=== PATIENT | female | born 1985 | race Caucasian/White ===

== ENCOUNTER 2025-07-10 17:44 | Emergency (ER) | payer MEDICAID ==
[~2025-07-10] VITALS: Ht 157.5 cm; Wt 48.9 kg
--- NOTE | 2025-07-10 18:03 | Physician Documentation ---
History of Present Illness ~ Stated Complaint: MENTAL HEALTH Time Seen by MD: 17:48 HPI 40-year-old female presents to the ED clearly high on some sort of sympathomimetic. Has a rambling forced an pressured speech. She came with her sister who is concerned for her well-being. Her sister states that she has had suicide ideation today however the patient adamantly denies this. According to the patient's sister she was [facility] and came to the sister's house and then left for 4 hours where they found her in a trash can. Patient a cknowledges using cocaine methamphetamine and fentanyl. Denies any history of psychiatric illness. Adamantly denies suicide ideation or homicidal ideation Pt's primary complaint is that she has a headache Day of Onset: Jul 10, 2025 Medication Reconciliation Allergies: Coded Allergies: amoxicillin (Verified Allergy, Severe, HIVES, 07/10/25) clavulanic acid (Verified Allergy, Severe, HIVES, 07/10/25) Penicillins (Verified Allergy, Intermediate, RASH, 07/10/25) diphenhydramine (Verified Allergy, Mild, RASH, 07/10/25) Scheduled Escitalopram Oxalate* (Lexapro*), 1 TAB PO DAILY, (Reported) levothyroxine sodium* (Synthroid*), 1 TAB PO DAILY, (Reported) Review of Systems All Other Systems at this time: Reviewed and Negative ROS As stated above in the HPI, otherwise all systems are reviewed and negative. Physical Exam Physical Exam General: Alert, no apparent distress. Cardiovascular: Regular rate and rhythm, no murmurs. Gastrointestinal: Soft, nontender, nondistended. Bowels sounds present. Neurologic: Oriented x4. Psychiatric: . Pressured speech anxious appearing rambling phrases Skin: Normal color, warm and dry. No edema, no ecchymosis. Progress Results/Orders Results/Orders Completed Orders - ANISHA SIMS Melatonin Tablet (Melatonin Tablet) (07/10/25 22:34) Medications Received in ER Medications (Trade) Dose Ordered Sig/Hector Route PRN Reason Start Time Stop Time Status Last Admin Dose Admin (Toradol inj. 30mg/ml) 30 mg ONCE ONCE IM 07/10/25 18:10 07/10/25 18:11 DC 07/10/25 18:34 30 MG (Haldol) 5 mg ONCE ONCE IM 07/10/25 18:15 07/10/25 18:16 DC 07/10/25 18:34 5 MG (Valium inj) 5 mg ONCE ONCE IM 07/10/25 18:15 07/10/25 18:16 DC 07/10/25 18:35 5 MG (Melatonin tablet) 9 mg NOW STAT PO 07/10/25 22:34 07/10/25 22:36 DC 07/10/25 22:41 9 MG Vital Signs 07/10/25 07/10/25 07/10/25 07/10/25 18:02 18:34 18:35 18:46 Temp 97.8 Pulse 76 Resp 18 20 20 20 B/P (MAP) 121/81 Pulse Ox 100 O2 Flow Rate 0 07/10/25 07/10/25 19:30 19:35 Temp 98.6 Pulse 74 Resp 20 18 B/P (MAP) 120/70 (87) Pulse Ox 99 Laboratory Tests Test 07/10/25 18:17 07/10/25 18:44 White Blood Count 11.9 H Red Blood Count 4.76 Hemoglobin 14.2 Hematocrit 42.2 Mean Corpuscular Volume 88.6 Mean Corpuscular Hemoglobin 29.9 Mean Corpuscular Hemoglobin Concent 33.7 Red Cell Distribution Width 13.0 Platelet Count 353 Mean Platelet Volume 7.0 L Neutrophils (%) (Auto) 68.7 Lymphocytes (%) (Auto) 24.1 Monocytes (%) (Auto) 6.1 Eosinophils (%) (Auto) 0.6 Basophils (%) (Auto) 0.5 Neutrophils # (Auto) 8.1 H Lymphocytes # (Auto) 2.9 Monocytes # (Auto) 0.7 Eosinophils # (Auto) 0.1 Basophils # (Auto) 0.1 CBC Comment Sodium Level 139 Potassium Level 3.5 Chloride Level 103 Carbon Dioxide Level 27.7 Anion Gap 8 Blood Urea Nitrogen 12 Creatinine 1.01 H Estimated GFR/1.73 m2 61 BUN/Creatinine Ratio 11.9 Glucose Level 100 Calcium Level 9.5 Albumin 4.0 Thyroid Stimulating Hormone (TSH) 11.93 H Chemistry Comments Ethyl Alcohol Level < 10 SARS-CoV-2 Antigen (Rapid) Negative Medical Decision Making Additional information obtaine: old records Findings Upon further evaluation and discussion with the sister who has reported that there is a family history of the bipolar depression in the family. Patient does present as though she may be in a manic state secondary to bipolar one. Patient is not tachycardic which makes me question whether or not methamphetamine is the has active factor in her rambling speech and proper pressured speech.. Going to order psychiatric protocol and tox screen and provide her with medicine to calm her down as she is not in a functional stated this time. Recreational drugs maybe a contributing factor but based on my observation and the family history I suspect there is underlying psychiatric concerns live. TSH elevated making her subtherapeutic. This may be due to medication compliance or subtherapeutic dosing. Likely not the cause of her acute symptomatology. Patient is medically cleared for behavioral health evaluation. Signed out at [id number] Differential Dx:Considerations: Include: DUMAS-Cluster, DUMAS-Migraine, DUMAS-Hypertensive, DUMAS-Muscular contraction, DUMAS-Post lumbar puncture, Carbon monoxide toxicity, Close head injuyr, CVA, Fever induced, Hemorrhage-Epidural, Hemorrhage-Intracerebral, Hemorrhage-Subarachnoid, Hemorrhage-Subdural, Mass lesion, Meningitis, Post-traumtic, Pseudotumor cerebri, Sinusitis, Temporal arteritis, Trigeminal neuralgia, Other Departure Disposition: HOME / SELF CARE / HOMELESS Impression: Primary Impression: Depression Qualified Codes: F32.1 - Major depressive disorder, single episode, moderate Referrals: NO PRIMARY CARE PROVIDER (PCP) Signature Scribe Signature: h Attestation: Scribed for Mainor Jarrett Cotton Inspector by Mainor Bro NP . 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
[2025-07-10 18:32] LABS: MEAN PLATELET VOLUME 7.0 FL (7.4-10.4); RED CELL DISTRIBUTION WIDTH 13.0 % (11.5-14.5)
[2025-07-10] MEDS: ketorolac trometh 30MG/ML vial 30 MG/ML VIAL IM ONE (18:34)
[2025-07-10] MEDS: haloperidol lactate 5mg/ml inj IM ONE (18:34)
[2025-07-10] MEDS: diazepam inj 5 MG/ML inj. IM ONE (18:35)
[2025-07-10 18:56] LABS: CREATININE 1.01 MG/DL (0.40-0.90); ETHANOL < 10 MG/DL (<10); TOTAL CARBON DIOXIDE 27.7 MMOL/L (24-32); eCRCL 58 ML/MIN; eGFR 61 ML/MIN
[2025-07-10] MEDS ORDERED: LEVO25TA2 PO (18:59)
[2025-07-10] MEDS ORDERED: ESCI5TAB PO (18:59)
[2025-07-11 05:58] VITALS: TEMP 98.6
[2025-07-11 06:49] LABS: LEUKOCYTE ESTERASE ,URINE TRACE (Neg); NITRITES, URINE NEGATIVE (Neg); OCCULT BLOOD,URINE SMALL (Neg)
[2025-07-11 06:52] LABS: URINE HCG NEGATIVE (NEG)
[2025-07-11 07:04] LABS: URINE AMPHETAMINE SCREEN POSITIVE (Neg); URINE BARBITUATE SCREEN NEGATIVE (Neg); URINE BENZODIAZEPINES SCREEN POSITIVE (Neg); URINE CANNABINOID SCREEN POSITIVE (Neg); URINE COCAINE SCREEN NEGATIVE (Neg); URINE METHADONE SCREEN NEGATIVE (Neg); URINE OPIATE SCREEN NEGATIVE (Neg); URINE PHENCYCLIDINE SCREEN NEGATIVE (Neg)
[2025-07-11 07:10] LABS: UA COLLECTION TYPE CLN CATCH MIDSTREAM
[2025-07-11 07:16] LABS: MUCUS STRANDS MANY /LPF (Neg); SQUAMOUS EPITHELIAL CELL,UR MANY /LPF (FEW)
[2025-07-11] MEDS ORDERED: PROP10TA10 PO (10:34)
[2025-07-11] MEDS ORDERED: LEVO125T PO (10:34)
[2025-07-11] MEDS ORDERED: ESCI-10 PO (10:34)
[2025-07-11] MEDS: ESCITALOPRAM 10 mg tablet 10 MG TABLET PO SCH (12:17)
[2025-07-11] MEDS: propranolol 10mg tablet PO SCH (12:19)
[2025-07-11 19:58] VITALS: BP 92/60; PULSE 83; RESP 16; O2SAT 98
== END 2025-07-11 20:04 ==
LOC: ER 17:46
DX: F32.A Depression, unspecified (principal); F14.90 Cocaine use, unspecified, uncomplicated; Z88.0 Allergy status to penicillin; Z88.1 Allergy status to other antibiotic agents; Z88.8 Allergy status to other drugs, medicaments and biological substances; Z79.899 Other long term (current) drug therapy; Z20.822 Contact with and (suspected) exposure to COVID-19
CPT/HCPCS: 36415; 80048; 80305; 80320; 81001; 81025; 84075; 84439; 84443; 84450; 84460; 85025; 87811; 96372; 99285; J1630; J1885; J3360; J7030; 99284